=== PATIENT | male | born 1960 | race Caucasian/White ===

== ENCOUNTER → 2025-08-02 09:30 | Outpatient (RCR) | payer OTHER, SELFPAY | LOC: CR 09:30 | PROVIDERS: PCP Family Medicine; Visit Provider Student in an Organized Health Care Education/Training Program | DX: I25.10 Atherosclerotic heart disease of native coronary artery without angina pectoris (principal); Z95.1 Presence of aortocoronary bypass graft; Z95.2 Presence of prosthetic heart valve | CPT/HCPCS: 93798 ==

== ENCOUNTER 2025-08-27 16:35 | Emergency (ER) | payer OTHER, SELFPAY ==
--- NOTE | 2025-08-27 16:39 | ECG_ITS ---
APPROVED REPORT Exam: Resting ECG HR:98 bpm ECG Measurements Heart Rate 98 AXES PA 155 P 63 QRSd 93 QRS -39 QT 346 T -21 QTc 401 Conclusion SINUS RHYTHM LEFT AXIS DEVIATION [QRS AXIS < -30] Trace ST elevation in lead I and aVL as well as depressions in the inferior leads concerning for ischemic changes but does not meet criteria for STEMI Electronically signed by : CASSY ABREU, 08/30/2025 06:46:44
--- NOTE | 2025-08-27 16:40 | ED_ITS ---
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 Patient states that he was having 3 to 4 hours of palpitations where his heart was racing. Patient states that it felt irregular. Patient states that this has happened before but has never lasted this long. Patient was not having any chest pain but was feeling mildly short of breath with this. Patient states that his symptoms have not resolved. Patient denies any history of blood clots. Patient denies any fevers, abdominal pain nausea vomiting or diarrhea. Patient does take a beta-tay. Patient denies any thyroid disease or other medication changes. Related Data Allergies Allergy/AdvReac Type Severity Reaction Status Date / Time No Known Allergies Allergy Verified 08/27/25 16:49 [facility] Disclaimer: The information contained in this section may have been updated after the patient was seen, as this information can be updated by other users. Social History Smoking Status: Current every day smoker alcohol intake: never current occupational status: other Travel in the last 8 weeks?: None ROS Obtained: Yes All systems reviewed & no additional complaints except as documented and Yes Systems reviewed as appropriate & no additional complaints except as documented Physical Exam General General appearance: alert and in no apparent distress Head Head exam: atraumatic, normocephalic and normal inspection Eye Eye exam: Present normal appearance, PERRL and EOMI; Absent scleral icterus ENT ENT exam: Present normal exam and normal external ear exam Neck Neck exam: Present normal inspection and full ROM Chest Chest inspection: Present normal inspection and symmetric chest wall rise Respiratory Respiratory exam: Present normal lung sounds bilaterally; Absent respiratory distress or wheezes Cardiovascular Cardiovascular exam: Present regular rate, normal rhythm and normal heart sounds Abdominal Exam Abdominal exam: Present soft and distention; Absent tenderness, guarding or rebound Extremities Exam Extremities exam: Present normal inspection and full ROM Back Exam Back exam: Present normal inspection and full ROM Neurological Exam Neurological exam: Present alert and oriented X3 Psychiatric Psychiatric exam: Present normal affect and normal mood Skin Skin exam: Present warm and dry Medical Decision Making Medical Records Medical records reviewed: Yes I reviewed the patient's medical records. Screening: Per USPSTF and CDC recommendations, given the prevalence of disease in our region, it is our hospital?s policy to screen for HIV and viral Hepatitis for all patients aged 18 and over and those with ongoing risk factors. Tee Inquiry Pt receiving controlled substance: No Vital Signs: 08/27/25 16:43 08/27/25 18:51 Temperature 97.9 F 97.6 F Temperature Source Oral Oral Pulse Rate 78 Pulse Rate [Right Brachial] 99 H Respiratory Rate 16 16 Blood Pressure 116/68 Blood Pressure [Right Arm] 120/75 Blood Pressure Mean [Right Arm] 90 Blood Pressure Source Automatic Cuff Blood Pressure Source [Right Arm] Automatic Cuff Blood Pressure Position Sitting Blood Pressure Position [Right Arm] Sitting 02 Sat by Pulse Oximetry 96 Oxygen Delivery Method Room Air Room Air Lab Data Lab results reviewed: Yes I reviewed the patient's lab results. Lab Results 08/27/25 16:40: D-Dimer 1.14 H, TSH 1.01, Free T4 1.12 08/27/25 16:49: Troponin I < 0.01 08/27/25 16:50: Sodium 140, Potassium 4.0, Chloride 105, Carbon Dioxide 26, Anion Gap 13.0, BUN 13, Creatinine 1.20, Estimated Creat Clear 73, Estimated GFR 61, Est GFR ( Amer) 74, Glucose 108 H, Calcium 9.5, Total Bilirubin 0.3, AST 33, ALT 19, Alkaline Phosphatase 119, Total Protein 7.1, Albumin 4.2, Globulin 2.9, Albumin/Globulin Ratio 1.4 08/27/25 : WBC 8.9, RBC 4.70, Hgb 13.4 L, Hct 40.2 L, MCV 85.5, MCH 28.5, MCHC 33.3, RDW 14.1, Plt Count 195, MPV 10.2, Neut % (Auto) 61.4, Lymph % (Auto) 26.5, [place] % (Auto) 7.1, Eos % (Auto) 4.0, Baso % (Auto) 0.7, Neut # (Auto) 5.5, Lymph # (Auto) 2.4, [place] # (Auto) 0.6, Eos # (Auto) 0.4, Baso # (Auto) 0.1 08/27/25 Unknown 08/27/25 16:50 Orders (Tests/Meds): ORDERS Category Date Time Status XR chest portable Stat Exams 08/27/25 16:49 Completed Complete Blood Count Auto Diff Stat Lab 08/27/25 Completed Comprehensive Metabolic Panel Stat Lab 08/27/25 16:50 Completed D-Dimer Stat Lab 08/27/25 16:40 Completed Free T4 (Free Thyroxine) Stat Lab 08/27/25 16:40 Completed TSH [Thyroid Stimulating Hormone] Stat Lab 08/27/25 16:40 Completed Troponin I Stat Lab 08/27/25 16:49 Completed Medical Decision Narrative: Patient is a 65-year-old gentleman who presented to the emergency department with palpitations. On arrival, patient was hemodynamically stable with unremarkable vital signs Differential includes but not limited to: ACS/[place], arrhythmia, thyroid disease, electrolyte abnormalities, pulmonary embolism, amongst others. Patient's labs reviewed and interpreted by myself: CBC showed no leukocytosis, hemoglobin was stable. CMP was unremarkable. D-dimer was elevated at 1.14. Troponin was less than 0.01. EKG was reviewed and interpreted myself and showed normal sinus rhythm without acute ST or T wave changes concerning for ischemia Chest x-ray was reviewed and interpreted by myself and showed no acute for consolidation, pneumothorax, pleural effusion or other acute cardiopulmonary process per Patient's elevated D-dimer, CT PE was ordered. Patient however wished to leave AGAINST MEDICAL ADVICE as patient was asymptomatic and patient states that he has a follow-up appoint with cardiology tomorrow. Given patient's elevated D-dimer, patient was asked to sign out AGAINST MEDICAL ADVICE. Unclear if patient was experiencing episodes of SVT, A- fib with RVR, I did recommend that patient likely needs a Holter monitor however patient does have follow-up with cardiology tomorrow. At this time, patient was discharged per his wishes Critical Care Critical Care Time Critical Care Time: No
[2025-08-27 16:43] VITALS: BP 120/75; PULSE 99; RESP 16; TEMP 36.6; O2SAT 96; BMI 25.8
--- NOTE | 2025-08-27 16:49 | XR_ITS ---
PROCEDURE INFORMATION: Exam: XR Chest Exam date and time: 08/27/2025 5:03 PM Age: 65 years old Clinical indication: Sternal or substernal pain; Additional info: Chest pain TECHNIQUE: Imaging protocol: Radiologic exam of the chest. Views: 1 view. COMPARISON: No relevant prior studies available. FINDINGS: Lungs: Unremarkable. No consolidation. Pleural spaces: Unremarkable. No pleural effusion. No pneumothorax. Heart/Mediastinum: Unremarkable. No cardiomegaly. Median sternotomy. Bones/joints: Unremarkable. IMPRESSION: No acute findings.
[2025-08-27 16:56] LABS: Hematocrit 40.2 % (42.0-52.0); Hemoglobin 13.4 g/dL (14.1-18.0); Immature Granulocytes % 0.3 %; Mean Corpuscular HGB Conc 33.3 g/dL (31.8-35.4); Mean Corpuscular Hemoglobin 28.5 pg (27.0-31.2); Mean Corpuscular Volume 85.5 fl (80-94); Nucleated Red Blood Cells % 0 %; Platelet Count 195 K/mm3 (142-424); Red Blood Count 4.70 M/mm3 (4.60-6.20); Red Cell Distribution Width-SD 43.9 fL; White Blood Count 8.9 K/mm3 (4.8-10.8)
[2025-08-27 17:02] LABS: Alanine Aminotransferase 19 U/L (12-78); Albumin Level 4.2 g/dl (3.5-5.0); Albumin/Globulin Ratio 1.4 (1.1-1.8); Alkaline Phosphatase 119 U/L (38-126); Anion Gap 13.0 mEq/L (5-15); Aspartate Amino Transferase 33 U/L (17-59); Bilirubin,Total 0.3 mg/dl (0.2-1.3); Blood Urea Nitrogen 13 mg/dl (9-20); Calcium 9.5 mg/dl (8.4-10.2); Carbon Dioxide 26 mmol/L (22.0-30.0); Chloride 105 mmol/L (98-107); Creatinine Clearance Estimated 73 mL/min (50-200); Creatinine,Serum 1.20 mg/dl (0.66-1.25); Estimated Glomerular Filt Rate 61 ml/min (>60); GFR (African American) 74 ML/MIN (>60); Globulin 2.9 g/dL (1.3-3.2); Glucose 108 mg/dl (74-100); Potassium 4.0 mmoL/L (3.5-5.1); Sodium 140 mmol/L (136-145); Total Protein,Serum 7.1 g/dl (6.3-8.2)
[2025-08-27 17:18] LABS: Troponin I < 0.01 ng/ml (0.00-0.034)
[2025-08-27 18:19] LABS: D-Dimer 1.14 ug/mL (0.0-0.5)
--- NOTE | 2025-08-27 18:45 | PC.NURSE ---
Patient advised he wanted to leave, did not wish to wait for CT scan and repeat blood work. informed.
--- NOTE | 2025-08-27 18:49 | PC.NURSE ---
Spoke with daughter. She has called to inquire about wait times for her father and requesting an update to be given to her mom in the waiting room. I explained to her that her father is receiving care and has a workup going. I informed her we have him in a chair room due to his complaint of chest pain and no other rooms available. Visitors aren't allowed in those room due to space constraints. Daughter verbalized understanding. I did provide update to daughter and informed her I would call the Charge nurse and have her provide an update to his . I also informed her that he does have scheduled labs at 1950. Daughter verbalized understanding. I called and spoke with Valery and she verbalized she would update family.
[2025-08-27 18:51] VITALS: BP 116/68; PULSE 78; RESP 16; TEMP 36.4; O2SAT 98
[2025-08-27 19:08] LABS: Free T4 (Free Thyroxine) 1.12 ng/dl (0.78-2.19)
[2025-08-27 19:22] LABS: Thyroid Stimulating Hormone 1.01 uIU/mL (0.465-4.68)
== END 2025-08-27 18:52 | disposition left against medical advice (07) ==
PROVIDERS: Emergency Provider Student in an Organized Health Care Education/Training Program; PCP Family Medicine
DX: R07.9 Chest pain, unspecified (principal); R00.2 Palpitations; F17.210 Nicotine dependence, cigarettes, uncomplicated
CPT/HCPCS: 71045; 80053; 84439; 84443; 84484; 85025; 85378; 93005; 99284; 99285

== ENCOUNTER 2025-08-28 14:44 | Outpatient (CLI) | payer OTHER, SELFPAY | END 2025-08-28 23:59 | disposition home or self-care (01) | LOC: RT 14:45 | PROVIDERS: PCP Family Medicine; Visit Provider Internal Medicine | DX: R00.2 Palpitations (principal) | CPT/HCPCS: 93270 ==